=== PATIENT | male | born 1980 | race Caucasian/White ===

== ENCOUNTER 2023-11-04 17:34 | Emergency (ER) | payer BC ==
[~2023-11-04] VITALS: Ht 180.3 cm; Wt 100.7 kg
[~2023-11-04 17:34] MED LIST: BENTYL10 MG PO; CYCL10; IBUP800 PO; TRAM50; Zofran Odt4 MG SL
[2023-11-04 17:52] VITALS: BP 120/80
[2023-11-04] MEDS ORDERED: Oxymetazoline 0.05% Nasal Relief Spray 15mL BTL ONE (18:00)
== END 2023-11-04 19:18 | disposition home or self-care (01) ==
LOC: ER 17:34
DX: R04.0 Epistaxis (principal); Z88.0 Allergy status to penicillin
CPT/HCPCS: A9270